=== PATIENT | male | born 1935 | race Caucasian/White ===

== ENCOUNTER 2021-12-23 11:06 | Observation (INO) ==
[2021-12-23] MEDS ORDERED: FUROSEMIDE 100 MG/10 ML VIAL IV STA (12:41)
[2021-12-23 13:12] LABS: Basophils % 0.1 % (0.0-0.8); Hematocrit 24.7 VOL% (42.0-52.0); Hemoglobin 7.9 GM/DL (14.0-18.0); Immature Granulocytes % 1.4 %; Immature Granulocytes Absolute 0.21 #; Lymphocytes # 1.5 10*3/uL (1.4-4.0); Mean Corpuscular Volume 97.6 FL (87-102); Mean Platelet Volume 10.2 FL (9.6-12.0); Monocytes # 2.7 10*3/uL (0.11-0.8); Monocytes % 17.7 % (1.7-12.7); Neutrophils % 70.8 % (38.7-73.9); Platelet Count 261 T/CUMM (130-400); Red Blood Count 2.53 MC/CUMM (3.8-5.5); Red Cell Distribution Width 14.6 % (9.3-17.3); White Blood Count 15.3 T/CUMM (4-12)
[2021-12-23 13:36] LABS: Albumin 2.6 G/DL (3.4-5.0); Calcium 8.3 MG/DL (8.5-10.1); Osmolality,Calculated 298.4 MOS/KG (273-304); Potassium 3.9 MMOL/L (3.5-5.1); Total Protein 6.8 G/DL (6.4-8.2)
[2021-12-23 13:50] LABS: Band Neutrophils 1 % (0-10); Lymphocytes 10 % (20-55); Platelet Estimate Increased
[2021-12-23 13:52] LABS: Ovalocytes Slight; Total Cells Counted 100
[2021-12-23 14:34] LABS: Bilirubin,Urine Large mg/dL (Negative); Blood, Urine Negative (Negative); Glucose,Urine (UA) Negative (Negative); Ketones,Urine Negative (Negative); Nitrite,Urine Negative (Negative); Protein,Urine 100 mg/dL (Negative); Urine Appearance Clear (Clear); Urine Color Yellow (Yellow); Urine Specific Gravity 1.015 (1.001-1.035); Urine Urobilinogen 0.2 eU/dL (<2.0); Urine pH 5.5 (4.5-8.0)
[2021-12-23 14:36] LABS: Bacteria,Urine Occasional /HPF (Few); RBC,Urine 4 /HPF (0-4); Squamous Epithelial Cell,Urine Occasional /HPF (0-10)
[2021-12-23 16:26] LABS: Folate 12.25 NG/ML (5.38-24.0)
[2021-12-23 16:28] LABS: % Iron Saturation 5.6 % (18-50); Ferritin 91.1 ng/mL (26-388)
[2021-12-23] MEDS ORDERED: ONDANSETRON 4 MG/2 ML VIAL IV PRN (16:57)
[2021-12-23] MEDS ORDERED: GLUCAGON 1 MG VIAL IM PRN (16:57)
[2021-12-23] MEDS ORDERED: ACETAMINOPHEN 325 MG TABLET PO PRN (16:57)
[2021-12-23] MEDS ORDERED: DEXTROSE 10% 250 ML BAG IV PRN (16:57)
[2021-12-23] MEDS ORDERED: LEVALBUTEROL 0.31 MG/3 ML NEB RESP TX PRN (18:28)
[2021-12-23] MEDS: AZITHROMYCIN INJ 500 MG in SODIUM CHLORIDE 0.9% 250 ML IV SCH (19:07)
[2021-12-23 19:33] LABS: Hepatitis B Surface Ag Quant < 0.10 Index; Hepatitis B Surface Ag Result Non-Reactive (NonReactive); Hepatitis C Virus Ab Quant < 0.02 Index; Hepatitis C Virus Ab Result Non-Reactive (NonReactive)
[2021-12-23] MEDS: cefTRIAXone 1,000 MG in SODIUM CHLORIDE 0.9% 100 ML IV SCH (20:57)
[2021-12-23] MEDS: ASPIRIN CHEW 81 MG TABLET PO SCH (20:58)
[2021-12-23] MEDS: carvediloL 25 MG TABLET PO SCH (20:58)
[2021-12-23] MEDS: INSULIN LISPRO 100 UNIT/ML SUBCUT SCH (21:08)
[2021-12-24 04:25] LABS: Basophils % 0.1 % (0.0-0.8); Hematocrit 26.2 VOL% (42.0-52.0); Hemoglobin 8.3 GM/DL (14.0-18.0); Immature Granulocytes % 1.2 %; Immature Granulocytes Absolute 0.17 #; Lymphocytes # 1.3 10*3/uL (1.4-4.0); Lymphocytes % 9.2 % (21.2-54.2); Mean Corpuscular HGB Conc 31.7 GM/DL (32-36); Mean Corpuscular Volume 99.2 FL (87-102); Mean Platelet Volume 10.4 FL (9.6-12.0); Monocytes # 2.2 10*3/uL (0.11-0.8); Monocytes % 16.2 % (1.7-12.7); Neutrophils % 73.3 % (38.7-73.9); Platelet Count 261 T/CUMM (130-400); Red Blood Count 2.64 MC/CUMM (3.8-5.5); Red Cell Distribution Width 14.5 % (9.3-17.3); White Blood Count 13.8 T/CUMM (4-12)
[2021-12-24 04:47] LABS: Band Neutrophils 1 % (0-10); Lymphocytes 10 % (20-55); Macrocytosis Slight; Platelet Estimate Normal; Total Cells Counted 100
[2021-12-24 04:48] LABS: Albumin 2.4 G/DL (3.4-5.0); Bilirubin,Total 0.8 MG/DL (0.20-1.00); Calcium 8.6 MG/DL (8.5-10.1); Osmolality,Calculated 297.3 MOS/KG (273-304); Potassium 3.6 MMOL/L (3.5-5.1); Risk Ratio 2.06; VLDL Cholesterol 18.8 MG/DL
[2021-12-24] MEDS ORDERED: FUROSEMIDE 40 MG/4 ML VIAL IV SCH (08:00)
[2021-12-24] MEDS ORDERED: FUROSEMIDE 40 MG/4 ML VIAL ONE (09:48)
[2021-12-24] MEDS: carvediloL 25 MG TABLET PO SCH ×2 (09:55→21:44)
[2021-12-24] MEDS: LEVOTHYROXINE 50 MCG TABLET PO SCH (09:55)
[2021-12-24] MEDS: FERRIC GLUCONATE COMPLEX 125 MG in SODIUM CHLORIDE 0.9% 100 ML IV SCH (09:55)
[2021-12-24] MEDS: INSULIN LISPRO 100 UNIT/ML SUBCUT SCH ×4 (10:07→21:58)
[2021-12-24] MEDS: FINASTERIDE 5 MG TABLET PO SCH (12:38)
[2021-12-24] MEDS: FUROSEMIDE 100 MG/10 ML VIAL IV SCH (16:32)
[2021-12-24] MEDS: AZITHROMYCIN INJ 500 MG in SODIUM CHLORIDE 0.9% 250 ML IV SCH ×2 (16:33→17:05)
[2021-12-24] MEDS ORDERED: TAMSULOSIN 0.4 MG CAPSULE PO SCH (17:00)
[2021-12-24] MEDS: ASPIRIN CHEW 81 MG TABLET PO SCH (21:44)
[2021-12-24] MEDS: cefTRIAXone 1,000 MG in SODIUM CHLORIDE 0.9% 100 ML IV SCH (21:46)
[2021-12-25 06:02] LABS: Basophils % 0.3 % (0.0-0.8); Eosinophils % 0.1 % (0.00-10.9); Hematocrit 26.2 VOL% (42.0-52.0); Hemoglobin 8.1 GM/DL (14.0-18.0); Immature Granulocytes % 1.5 %; Immature Granulocytes Absolute 0.15 #; Lymphocytes # 1.7 10*3/uL (1.4-4.0); Lymphocytes % 17.1 % (21.2-54.2); Mean Corpuscular HGB Conc 30.9 GM/DL (32-36); Mean Corpuscular Volume 99.2 FL (87-102); Mean Platelet Volume 10.7 FL (9.6-12.0); Monocytes # 1.5 10*3/uL (0.11-0.8); Monocytes % 15.6 % (1.7-12.7); Neutrophils % 65.4 % (38.7-73.9); Platelet Count 252 T/CUMM (130-400); Red Blood Count 2.64 MC/CUMM (3.8-5.5); Red Cell Distribution Width 14.1 % (9.3-17.3); White Blood Count 9.8 T/CUMM (4-12)
[2021-12-25 06:17] LABS: Albumin 2.2 G/DL (3.4-5.0); Bilirubin,Direct 0.16 MG/DL (0.0-0.20); Bilirubin,Indirect 0.3 MG/DL (0.0-1.0); Bilirubin,Total 0.5 MG/DL (0.20-1.00); Calcium 8.3 MG/DL (8.5-10.1); Osmolality,Calculated 295.5 MOS/KG (273-304); Potassium 3.5 MMOL/L (3.5-5.1); Total Protein 6.6 G/DL (6.4-8.2)
[2021-12-25 06:26] LABS: Hypochromia Slight; Lymphocytes 19 % (20-55); Platelet Estimate Adequate; Total Cells Counted 100
[2021-12-25] MEDS: carvediloL 25 MG TABLET PO SCH (09:51)
[2021-12-25] MEDS: LEVOTHYROXINE 50 MCG TABLET PO SCH (09:51)
[2021-12-25] MEDS: FERRIC GLUCONATE COMPLEX 125 MG in SODIUM CHLORIDE 0.9% 100 ML IV SCH (09:54)
[2021-12-25] MEDS: INSULIN LISPRO 100 UNIT/ML SUBCUT SCH ×2 (09:58→11:43)
[2021-12-25] MEDS: FUROSEMIDE 100 MG/10 ML VIAL IV SCH ×2 (11:08→11:44)
[2021-12-25] MEDS: FINASTERIDE 5 MG TABLET PO SCH (11:43)
[2021-12-25] MEDS ORDERED: FUROSEMIDE 100 MG/10 ML VIAL IV SCH (12:00)
[2021-12-25 12:53] VITALS: BP 107/53
[2021-12-25] MEDS ORDERED: ATORVASTATIN 20 MG TABLET PO SCH (21:00)
== END 2021-12-25 15:10 | disposition home or self-care (01) ==
LOC: N.EDINP 11:06 → N.ED 11:06 → SUATTDRO 16:57 → N.EDINP 12-24 14:02 → N.TELEN 12-24 14:04
PROVIDERS: ADMIT Internal Medicine Geriatric Medicine; ATTEND Internal Medicine

== ENCOUNTER 2022-03-26 20:22 | Observation (INO) ==
[2022-03-26 21:17] LABS: Basophils % 0.4 % (0.0-0.8); Hematocrit 36.7 VOL% (42.0-52.0); Hemoglobin 12.4 GM/DL (14.0-18.0); Immature Granulocytes % 0.5 %; Immature Granulocytes Absolute 0.04 #; Lymphocytes # 1.9 10*3/uL (1.4-4.0); Lymphocytes % 21.9 % (21.2-54.2); Mean Corpuscular HGB Conc 33.8 GM/DL (32-36); Mean Corpuscular Volume 90.4 FL (87-102); Mean Platelet Volume 9.5 FL (9.6-12.0); Monocytes % 11.2 % (1.7-12.7); Platelet Count 316 T/CUMM (130-400); Red Blood Count 4.06 MC/CUMM (3.8-5.5); Red Cell Distribution Width 13.2 % (9.3-17.3); White Blood Count 8.5 T/CUMM (4-12)
[2022-03-26 21:43] LABS: Alanine Aminotransferase 24 U/L (16-61); Albumin 3.9 G/DL (3.4-5.0); Alkaline Phosphatase 89 U/L (45-117); Aspartate Amino Transferase 14 U/L (0-37); Blood Urea Nitrogen 47 MG/DL (7-18); Calcium 9.2 MG/DL (8.5-10.1); Carbon Dioxide 25 MMOL/L (21-32); Chloride 98 MMOL/L (98-107); Glucose 132 MG/DL (74-106); Osmolality,Calculated 286.8 MOS/KG (273-304); Potassium 3.1 MMOL/L (3.5-5.1); Sodium 137 MMOL/L (136-145); Total Protein 7.6 G/DL (6.4-8.2)
[2022-03-26 21:44] LABS: Bilirubin,Urine Negative (Negative); Blood, Urine Negative (Negative); Glucose,Urine (UA) Negative (Negative); Ketones,Urine Negative (Negative); Nitrite,Urine Negative (Negative); Protein,Urine 30 mg/dL (Negative); Urine Appearance Clear (Clear); Urine Color Yellow (Yellow); Urine Urobilinogen 0.2 eU/dL (<2.0); Urine pH 7.5 (4.5-8.0)
[2022-03-26 21:45] LABS: RBC,Urine 1 /HPF (0-4)
[2022-03-26] MEDS ORDERED: SODIUM CHLORIDE 0.9% 1,000 ML IV STA (22:04)
[2022-03-27] MEDS ORDERED: ONDANSETRON 4 MG/2 ML VIAL IV PRN (00:08)
[2022-03-27] MEDS ORDERED: GLUCAGON 1 MG VIAL IM PRN (00:08)
[2022-03-27] MEDS ORDERED: ACETAMINOPHEN 325 MG TABLET PO PRN (00:08)
[2022-03-27] MEDS ORDERED: POTASSIUM CHLORIDE 20 MEQ TABLET PO ONE (00:17)
[2022-03-27] MEDS ORDERED: POTASSIUM CHLORIDE 20 MEQ TABLET PO PRN (00:17)
[2022-03-27] MEDS ORDERED: POLYETHYLENE GLYCOL POWDER 17 GM PACK PO ONE (00:17)
[2022-03-27] MEDS ORDERED: DEXTROSE 10% 250 ML BAG IV PRN (00:27)
[2022-03-27 08:01] LABS: Basophils % 0.6 % (0.0-0.8); Eosinophils % 0.1 % (0.00-10.9); Hematocrit 31.1 VOL% (42.0-52.0); Immature Granulocytes % 0.6 %; Immature Granulocytes Absolute 0.04 #; Lymphocytes # 1.8 10*3/uL (1.4-4.0); Lymphocytes % 25.1 % (21.2-54.2); Mean Corpuscular HGB Conc 33.1 GM/DL (32-36); Mean Corpuscular Volume 92.8 FL (87-102); Mean Platelet Volume 9.8 FL (9.6-12.0); Monocytes % 14.4 % (1.7-12.7); Neutrophils % 59.2 % (38.7-73.9); Platelet Count 302 T/CUMM (130-400); Red Blood Count 3.35 MC/CUMM (3.8-5.5); Red Cell Distribution Width 13.5 % (9.3-17.3); White Blood Count 7.2 T/CUMM (4-12)
[2022-03-27 08:02] LABS: Hemoglobin 10.3 GM/DL (14.0-18.0)
[2022-03-27 08:14] LABS: Albumin 3.1 G/DL (3.4-5.0); Bilirubin,Total 0.4 MG/DL (0.20-1.00); Calcium 8.4 MG/DL (8.5-10.1); Osmolality,Calculated 287.5 MOS/KG (273-304); Potassium 3.9 MMOL/L (3.5-5.1); Risk Ratio 2.47; Total Protein 6.5 G/DL (6.4-8.2); VLDL Cholesterol 28.8 MG/DL
[2022-03-27 08:50] LABS: Calcium 8.4 MG/DL (8.5-10.1); Osmolality,Calculated 290.5 MOS/KG (273-304); Potassium 4.2 MMOL/L (3.5-5.1)
[2022-03-27] MEDS ORDERED: carvediloL 25 MG TABLET PO SCH (09:00)
[2022-03-27] MEDS ORDERED: FINASTERIDE 5 MG TABLET PO SCH (09:00)
[2022-03-27] MEDS ORDERED: ENOXAPARIN 30 MG/0.3 ML SYRINGE SUBCUT SCH (09:00)
[2022-03-27] MEDS ORDERED: DILTIAZEM CD 180 MG CAPSULE PO SCH (09:00)
[2022-03-27] MEDS ORDERED: DOCUSATE SODIUM 100 MG/10 ML UDCUP PO SCH (09:00)
[2022-03-27] MEDS ORDERED: PANTOPRAZOLE 40 MG TABLET PO SCH (09:00)
[2022-03-27] MEDS ORDERED: CHOLECALCIFEROL 1,000 UNIT TABLET PO SCH (09:00)
[2022-03-27] MEDS ORDERED: FERROUS SULFATE 325 MG TABLET PO SCH (09:00)
[2022-03-27] MEDS ORDERED: amLODIPine 5 MG TABLET PO SCH (09:00)
[2022-03-27 11:34] VITALS: BP 132/60
[2022-03-27] MEDS ORDERED: TAMSULOSIN 0.4 MG CAPSULE PO SCH (17:00)
[2022-03-27] MEDS ORDERED: ATORVASTATIN 20 MG TABLET PO SCH (21:00)
[2022-03-27] MEDS ORDERED: NON-FORMULARY MEDICATION (Esomeprazole Magnesium 40 mg capsule,delayed release(DR/EC)) PO SCH (21:00)
[2022-03-27] MEDS ORDERED: ASPIRIN CHEW 81 MG TABLET PO SCH (21:00)
== END 2022-03-27 12:47 | disposition home or self-care (01) ==
LOC: N.TELES 20:22 → N.ED 20:22 → N.TELES 03-27 02:10
PROVIDERS: ADMIT Internal Medicine; ATTEND Internal Medicine

== ENCOUNTER 2022-06-10 15:03 | Inpatient (IN) ==
[2022-06-10] MEDS ORDERED: SODIUM CHLORIDE 0.9% 1,000 ML IV STA (16:10)
[2022-06-10 17:07] LABS: Basophils % 0.4 % (0.0-0.8); Eosinophils % 0.3 % (0.00-10.9); Immature Granulocytes % 0.6 %; Immature Granulocytes Absolute 0.04 #; Lymphocytes # 1.3 10*3/uL (1.4-4.0); Lymphocytes % 19.6 % (21.2-54.2); Mean Corpuscular HGB Conc 32.3 GM/DL (32-36); Mean Corpuscular Volume 100.3 FL (87-102); Mean Platelet Volume 9.1 FL (9.6-12.0); Monocytes # 0.9 10*3/uL (0.11-0.8); Monocytes % 13.2 % (1.7-12.7); Neutrophils % 65.9 % (38.7-73.9); Platelet Count 246 T/CUMM (130-400); Red Blood Count 3.09 MC/CUMM (3.8-5.5); Red Cell Distribution Width 13.9 % (9.3-17.3); White Blood Count 6.8 T/CUMM (4-12)
[2022-06-10 17:34] LABS: Albumin 2.8 G/DL (3.4-5.0); Bilirubin,Total 0.6 MG/DL (0.20-1.00); Calcium 7.8 MG/DL (8.5-10.1); Free T4 (Free Thyroxine) 1.25 NG/DL (0.76-1.46); Osmolality,Calculated 289.5 MOS/KG (273-304); Potassium 3.8 MMOL/L (3.5-5.1); Thyroid Stimulating Hormone 29.7 uIU/ml (0.358-3.74); Total Protein 5.8 G/DL (6.4-8.2)
[2022-06-10 17:49] LABS: RBC,Urine 1 /HPF (0-4)
[2022-06-10 17:52] LABS: Bilirubin,Urine Negative (Negative); Glucose,Urine (UA) 500 mg/dL (Negative); Ketones,Urine Negative (Negative); Nitrite,Urine Negative (Negative); Protein,Urine Negative (Negative); Urine Appearance Clear (Clear); Urine Color Yellow (Yellow)
[2022-06-10 17:53] LABS: Blood, Urine Negative (Negative); Urine Urobilinogen 0.2 eU/dL (<2.0)
[2022-06-10] MEDS ORDERED: hydrALAZINE 20 MG/1 ML VIAL IV STA (18:50)
[2022-06-10] MEDS ORDERED: ACETAMINOPHEN 325 MG TABLET PO PRN (20:11)
[2022-06-10] MEDS ORDERED: GLUCAGON 1 MG VIAL IM PRN (20:11)
[2022-06-10] MEDS ORDERED: POLYETHYLENE GLYCOL POWDER 17 GM PACK PO PRN (20:16)
[2022-06-10] MEDS ORDERED: ENOXAPARIN 30 MG/0.3 ML SYRINGE SUBCUT SCH (20:30)
[2022-06-10] MEDS ORDERED: DEXTROSE 10% 250 ML BAG IV PRN (20:57)
[2022-06-10] MEDS: AMIODARONE 200 MG TABLET PO SCH (21:33)
[2022-06-10] MEDS: ATORVASTATIN 20 MG TABLET PO SCH (21:33)
[2022-06-10] MEDS: ASPIRIN CHEW 81 MG TABLET PO SCH (21:33)
[2022-06-10] MEDS: APIXABAN 2.5 MG TABLET PO SCH (21:34)
[2022-06-10] MEDS: carvediloL 25 MG TABLET PO SCH (21:34)
[2022-06-10] MEDS: INSULIN REGULAR 100 UNIT/ML SUBCUT SCH (21:34)
[2022-06-11 05:21] LABS: Basophils # 0.1 10*3/uL (0.0-0.2); Basophils % 0.7 % (0.0-0.8); Eosinophils % 0.4 % (0.00-10.9); Hematocrit 28.1 VOL% (42.0-52.0); Hemoglobin 9.1 GM/DL (14.0-18.0); Immature Granulocytes % 0.6 %; Immature Granulocytes Absolute 0.04 #; Lymphocytes # 1.4 10*3/uL (1.4-4.0); Lymphocytes % 19.8 % (21.2-54.2); Mean Corpuscular HGB Conc 32.4 GM/DL (32-36); Mean Platelet Volume 9.4 FL (9.6-12.0); Monocytes % 13.8 % (1.7-12.7); Neutrophils % 64.7 % (38.7-73.9); Platelet Count 261 T/CUMM (130-400); Red Blood Count 2.81 MC/CUMM (3.8-5.5); Red Cell Distribution Width 13.7 % (9.3-17.3); White Blood Count 6.9 T/CUMM (4-12)
[2022-06-11] MEDS: LEVOTHYROXINE 50 MCG TABLET PO SCH (05:44)
[2022-06-11 05:48] LABS: Calcium 7.7 MG/DL (8.5-10.1); Osmolality,Calculated 288.4 MOS/KG (273-304); Potassium 3.6 MMOL/L (3.5-5.1)
[2022-06-11] MEDS: DOXAZOSIN 1 MG TABLET PO SCH (09:19)
[2022-06-11] MEDS: CHOLECALCIFEROL 1,000 UNIT TABLET PO SCH (09:19)
[2022-06-11] MEDS: carvediloL 25 MG TABLET PO SCH ×2 (09:19→20:30)
[2022-06-11] MEDS: PANTOPRAZOLE 40 MG TABLET PO SCH (09:19)
[2022-06-11] MEDS: AMIODARONE 200 MG TABLET PO SCH ×2 (09:19→20:30)
[2022-06-11] MEDS: APIXABAN 2.5 MG TABLET PO SCH ×2 (09:19→20:30)
[2022-06-11] MEDS: INSULIN REGULAR 100 UNIT/ML SUBCUT SCH ×4 (09:19→20:07)
[2022-06-11] MEDS ORDERED: traZODone 50 MG TABLET PO PRN (09:51)
[2022-06-11] MEDS: FINASTERIDE 5 MG TABLET PO SCH (12:23)
[2022-06-11] MEDS: TAMSULOSIN 0.4 MG CAPSULE PO SCH (17:34)
[2022-06-11] MEDS: ASPIRIN CHEW 81 MG TABLET PO SCH (20:30)
[2022-06-11] MEDS: ATORVASTATIN 20 MG TABLET PO SCH (20:30)
[2022-06-12] MEDS: LEVOTHYROXINE 50 MCG TABLET PO SCH (06:06)
[2022-06-12] MEDS: INSULIN REGULAR 100 UNIT/ML SUBCUT SCH ×4 (08:13→21:58)
[2022-06-12] MEDS: DOXAZOSIN 1 MG TABLET PO SCH (08:23)
[2022-06-12] MEDS: carvediloL 25 MG TABLET PO SCH ×2 (08:24→21:14)
[2022-06-12] MEDS: APIXABAN 2.5 MG TABLET PO SCH ×2 (08:24→21:14)
[2022-06-12] MEDS: PANTOPRAZOLE 40 MG TABLET PO SCH (08:24)
[2022-06-12] MEDS: AMIODARONE 200 MG TABLET PO SCH ×2 (08:24→21:14)
[2022-06-12] MEDS: CHOLECALCIFEROL 1,000 UNIT TABLET PO SCH (08:24)
[2022-06-12] MEDS: FINASTERIDE 5 MG TABLET PO SCH (13:14)
[2022-06-12] MEDS: TAMSULOSIN 0.4 MG CAPSULE PO SCH (17:02)
[2022-06-12] MEDS: ATORVASTATIN 20 MG TABLET PO SCH (21:14)
[2022-06-12] MEDS: ASPIRIN CHEW 81 MG TABLET PO SCH (21:14)
[2022-06-13] MEDS: LEVOTHYROXINE 50 MCG TABLET PO SCH (05:50)
[2022-06-13] MEDS: INSULIN REGULAR 100 UNIT/ML SUBCUT SCH ×4 (08:10→21:36)
[2022-06-13] MEDS: DOXAZOSIN 1 MG TABLET PO SCH (09:58)
[2022-06-13] MEDS: carvediloL 25 MG TABLET PO SCH ×2 (09:58→21:29)
[2022-06-13] MEDS: CHOLECALCIFEROL 1,000 UNIT TABLET PO SCH (09:58)
[2022-06-13] MEDS: PANTOPRAZOLE 40 MG TABLET PO SCH (09:58)
[2022-06-13] MEDS: APIXABAN 2.5 MG TABLET PO SCH ×2 (09:59→21:30)
[2022-06-13] MEDS: AMIODARONE 200 MG TABLET PO SCH ×2 (09:59→21:29)
[2022-06-13] MEDS: FINASTERIDE 5 MG TABLET PO SCH (11:47)
[2022-06-13] MEDS: TAMSULOSIN 0.4 MG CAPSULE PO SCH (17:21)
[2022-06-13] MEDS ORDERED: ONDANSETRON ODT 4 MG TABLET PO PRN (21:12)
[2022-06-13] MEDS: ASPIRIN CHEW 81 MG TABLET PO SCH (21:29)
[2022-06-13] MEDS: ATORVASTATIN 20 MG TABLET PO SCH (21:30)
[2022-06-14] MEDS: LEVOTHYROXINE 50 MCG TABLET PO SCH (05:52)
[2022-06-14] MEDS: INSULIN REGULAR 100 UNIT/ML SUBCUT SCH ×4 (07:48→21:42)
[2022-06-14] MEDS: CHOLECALCIFEROL 1,000 UNIT TABLET PO SCH (09:28)
[2022-06-14] MEDS: PANTOPRAZOLE 40 MG TABLET PO SCH (09:28)
[2022-06-14] MEDS: APIXABAN 2.5 MG TABLET PO SCH ×2 (09:28→21:39)
[2022-06-14] MEDS: DOXAZOSIN 1 MG TABLET PO SCH (09:28)
[2022-06-14] MEDS: AMIODARONE 200 MG TABLET PO SCH ×2 (09:28→21:37)
[2022-06-14] MEDS: carvediloL 25 MG TABLET PO SCH ×2 (09:28→21:39)
[2022-06-14 11:19] LABS: Basophils % 0.3 % (0.0-0.8); Hematocrit 25.2 VOL% (42.0-52.0); Hemoglobin 8.1 GM/DL (14.0-18.0); Immature Granulocytes % 0.4 %; Immature Granulocytes Absolute 0.03 #; Lymphocytes % 13.8 % (21.2-54.2); Mean Corpuscular HGB Conc 32.1 GM/DL (32-36); Mean Corpuscular Volume 100.4 FL (87-102); Mean Platelet Volume 9.3 FL (9.6-12.0); Monocytes # 0.8 10*3/uL (0.11-0.8); Monocytes % 10.7 % (1.7-12.7); Neutrophils % 74.8 % (38.7-73.9); Platelet Count 222 T/CUMM (130-400); Red Blood Count 2.51 MC/CUMM (3.8-5.5); Red Cell Distribution Width 13.4 % (9.3-17.3); White Blood Count 7.2 T/CUMM (4-12)
[2022-06-14 11:33] LABS: Calcium 7.7 MG/DL (8.5-10.1); Osmolality,Calculated 291.5 MOS/KG (273-304); Potassium 3.9 MMOL/L (3.5-5.1)
[2022-06-14] MEDS: FINASTERIDE 5 MG TABLET PO SCH (11:52)
[2022-06-14] MEDS: TAMSULOSIN 0.4 MG CAPSULE PO SCH (16:24)
[2022-06-14] MEDS: ASPIRIN CHEW 81 MG TABLET PO SCH (21:37)
[2022-06-14] MEDS: ATORVASTATIN 20 MG TABLET PO SCH (21:39)
[2022-06-15] MEDS: LEVOTHYROXINE 50 MCG TABLET PO SCH (05:22)
[2022-06-15 05:23] LABS: Basophils % 0.5 % (0.0-0.8); Eosinophils % 0.3 % (0.00-10.9); Hematocrit 24.2 VOL% (42.0-52.0); Hemoglobin 7.9 GM/DL (14.0-18.0); Immature Granulocytes % 0.5 %; Immature Granulocytes Absolute 0.03 #; Lymphocytes # 1.5 10*3/uL (1.4-4.0); Lymphocytes % 23.3 % (21.2-54.2); Mean Corpuscular HGB Conc 32.6 GM/DL (32-36); Mean Corpuscular Volume 101.7 FL (87-102); Mean Platelet Volume 9.1 FL (9.6-12.0); Monocytes # 0.9 10*3/uL (0.11-0.8); Monocytes % 13.7 % (1.7-12.7); Neutrophils % 61.7 % (38.7-73.9); Platelet Count 204 T/CUMM (130-400); Red Blood Count 2.38 MC/CUMM (3.8-5.5); Red Cell Distribution Width 13.5 % (9.3-17.3); White Blood Count 6.56 T/CUMM (4-12)
[2022-06-15 06:00] LABS: Albumin 2.1 G/DL (3.4-5.0); Calcium 7.6 MG/DL (8.5-10.1); Osmolality,Calculated 294.3 MOS/KG (273-304); Phosphorous 4.2 MG/DL (2.5-4.9); Potassium 3.8 MMOL/L (3.5-5.1)
[2022-06-15] MEDS: INSULIN REGULAR 100 UNIT/ML SUBCUT SCH ×4 (07:43→21:03)
[2022-06-15] MEDS: PANTOPRAZOLE 40 MG TABLET PO SCH (09:14)
[2022-06-15] MEDS: CHOLECALCIFEROL 1,000 UNIT TABLET PO SCH (09:14)
[2022-06-15] MEDS: AMIODARONE 200 MG TABLET PO SCH ×2 (09:14→21:05)
[2022-06-15] MEDS: carvediloL 25 MG TABLET PO SCH ×2 (09:14→21:05)
[2022-06-15] MEDS: APIXABAN 2.5 MG TABLET PO SCH ×2 (09:14→21:03)
[2022-06-15] MEDS: DOXAZOSIN 1 MG TABLET PO SCH (09:14)
[2022-06-15] MEDS: FINASTERIDE 5 MG TABLET PO SCH (12:48)
[2022-06-15] MEDS: TAMSULOSIN 0.4 MG CAPSULE PO SCH (16:05)
[2022-06-15] MEDS: ATORVASTATIN 20 MG TABLET PO SCH (21:02)
[2022-06-15] MEDS: ASPIRIN CHEW 81 MG TABLET PO SCH (21:02)
[2022-06-16] MEDS: LEVOTHYROXINE 50 MCG TABLET PO SCH (05:37)
[2022-06-16] MEDS: carvediloL 25 MG TABLET PO SCH ×2 (10:32→21:19)
[2022-06-16] MEDS: INSULIN REGULAR 100 UNIT/ML SUBCUT SCH ×4 (10:33→21:25)
[2022-06-16] MEDS: DOXAZOSIN 1 MG TABLET PO SCH (10:33)
[2022-06-16] MEDS: APIXABAN 2.5 MG TABLET PO SCH ×2 (10:33→21:19)
[2022-06-16] MEDS: CHOLECALCIFEROL 1,000 UNIT TABLET PO SCH (10:33)
[2022-06-16] MEDS: PANTOPRAZOLE 40 MG TABLET PO SCH (10:33)
[2022-06-16] MEDS: AMIODARONE 200 MG TABLET PO SCH ×2 (10:33→21:19)
[2022-06-16] MEDS: FINASTERIDE 5 MG TABLET PO SCH (14:20)
[2022-06-16] MEDS: TAMSULOSIN 0.4 MG CAPSULE PO SCH (19:53)
[2022-06-16] MEDS: ATORVASTATIN 20 MG TABLET PO SCH (21:19)
[2022-06-16] MEDS: ASPIRIN CHEW 81 MG TABLET PO SCH (21:19)
[2022-06-16] MEDS: ZINC OXIDE PASTE 113 GM TUBE TOP SCH (21:20)
[2022-06-17 04:58] LABS: Basophils % 0.5 % (0.0-0.8); Eosinophils % 0.4 % (0.00-10.9); Hemoglobin 7.7 GM/DL (14.0-18.0); Immature Granulocytes % 0.7 %; Immature Granulocytes Absolute 0.04 #; Lymphocytes # 1.6 10*3/uL (1.4-4.0); Mean Corpuscular HGB Conc 32.1 GM/DL (32-36); Mean Corpuscular Volume 101.3 FL (87-102); Mean Platelet Volume 9.5 FL (9.6-12.0); Monocytes # 0.8 10*3/uL (0.11-0.8); Monocytes % 13.6 % (1.7-12.7); Neutrophils % 56.8 % (38.7-73.9); Platelet Count 229 T/CUMM (130-400); Red Blood Count 2.37 MC/CUMM (3.8-5.5); Red Cell Distribution Width 13.5 % (9.3-17.3); White Blood Count 5.58 T/CUMM (4-12)
[2022-06-17 05:14] LABS: Calcium 7.8 MG/DL (8.5-10.1); Osmolality,Calculated 293.4 MOS/KG (273-304); Potassium 3.6 MMOL/L (3.5-5.1)
[2022-06-17] MEDS ORDERED: LEVOTHYROXINE 75 MCG TABLET PO SCH (06:00)
[2022-06-17] MEDS: AMIODARONE 200 MG TABLET PO SCH (09:21)
[2022-06-17] MEDS: CHOLECALCIFEROL 1,000 UNIT TABLET PO SCH (09:21)
[2022-06-17] MEDS: PANTOPRAZOLE 40 MG TABLET PO SCH (09:21)
[2022-06-17] MEDS: DOXAZOSIN 1 MG TABLET PO SCH (09:21)
[2022-06-17] MEDS: carvediloL 25 MG TABLET PO SCH (09:21)
[2022-06-17] MEDS: APIXABAN 2.5 MG TABLET PO SCH (09:21)
[2022-06-17] MEDS: ZINC OXIDE PASTE 113 GM TUBE TOP SCH (09:26)
[2022-06-17] MEDS: INSULIN REGULAR 100 UNIT/ML SUBCUT SCH ×2 (09:26→13:03)
[2022-06-17 11:46] VITALS: BP 128/68
[2022-06-17] MEDS: FINASTERIDE 5 MG TABLET PO SCH (13:03)
== END 2022-06-17 15:22 | disposition swing bed (61) | DRG 948 ==
LOC: N.ED 15:03 → N.EDINP 15:03 → SUATTDRO 20:11 → N.TELES 06-11 00:21
PROVIDERS: ADMIT Internal Medicine Geriatric Medicine; ATTEND Internal Medicine